=== PATIENT | female | born 1955 | race Hispanic/Latino ===

== ENCOUNTER 2020-03-02 06:04 | Day surgery (SDC) | payer OTHER, MEDICARE ==
[2020-02-29 13:01] LABS: BASOPHILS % (AUTO) 0.8 % (0.0-5.0); EOSINOPHILS % (AUTO) 2.4 % (0.0-8.0); HEMATOCRIT 32.8 % (36-48); LYMPHOCYTES % (AUTO) 26.1 % (21.0-51.0); MEAN CORPUSCULAR HEMOGLOBIN 32.7 pg (27.0-33.0); MEAN CORPUSCULAR HGB CONC 32.3 g/dL (32.0-36.0); MEAN CORPUSCULAR VOLUME 101.2 fL (79-99); NEUTROPHILS % (AUTO) 60.9 % (40.0-77.0); PLATELET COUNT (AUTO) 238 K/uL (130-400); RED BLOOD CELL COUNT(AUTO) 3.24 MIL/uL (4.00-5.50); WHITE BLOOD COUNT (AUTO) 4.9 K/uL (4.8-10.8)
[2020-02-29 13:08] LABS: CREATININE 1.1 mg/dL (0.5-1.5); POTASSIUM 4.8 mmol/L (3.5-5.1)
[2020-02-29 13:15] LABS: INR 0.89 (0.85-1.15); PARTIAL THROMBOPLASTIN TIME 26.6 SEC (26.3-35.5); PROTHROMBIN TIME 9.7 SEC (9.6-11.6)
[2020-02-29 13:53] LABS: APPEARANCE,URINE Clear (CLEAR); BILIRUBIN,URINE Negative (NEGATIVE); COLOR,URINE Yellow (YELLOW); GLUCOSE, URINE (UA) Negative (NEGATIVE); KETONES,URINE Negative (NEGATIVE); LEUKOCYTE ESTERASE ,URINE Negative (NEGATIVE); NITRATE,URINE Negative (NEGATIVE); OCCULT BLOOD,URINE Negative (NEGATIVE); PH,URINE 5.5 (5.0-8.0); PROTEIN,URINE Negative (NEGATIVE); UROBILINOGEN,URINE 0.2 mg/dL (0.2-1.0)
--- NOTE | 2020-03-01 11:10 | NUR ---
LABS LOW H&H REPORTED TO DR. DICKINSON, NO FURTHER ORDERS GIVEN,
[2020-03-01 11:42] VITALS: BP 141/65
[2020-03-02] VITALS (11 sets, daily range): BP systolic 114–207; BP diastolic 44–67
[~2020-03-02] VITALS: Ht 154.9 cm; Wt 73.2 kg
[~2020-03-02 06:04] MED LIST: ACET-2743 PO; ASPI-556 PO; FERR-82 PO; FLUT16H NASAL; INSU100I21 SQ; ISOS30TA6 PO; LEG CRAMPS PO; LISI-613 PO; METO-391 PO; NITR0.4T SL; OMEP20CA12 PO; PIOG30TA70 PO; SIMV-43 PO; TRAM-355 PO
[2020-03-02] MEDS ORDERED: DEXTROSE 50%-WATER 25 GM/50 ML VIAL ONE (06:20)
[2020-03-02] MEDS ORDERED: LIDOCAINE HCL 2% 20ML ONE (07:22)
[2020-03-02] MEDS ORDERED: IOHEXOL 350 MG/ML 100ML INFUS..BTL IV ONE (07:22)
[2020-03-02] MEDS ORDERED: HEPARIN SODIUM 1000UNIT/ML 10ML VIAL ONE (07:22)
[2020-03-02] MEDS ORDERED: IOHEXOL-350 50ML VIAL IV ONE (07:22)
[2020-03-02] MEDS ORDERED: GLUCAGON 1MG KIT 1 MG ML IM PRN (08:15)
[2020-03-02] MEDS ORDERED: DEXTROSE 50%-WATER 50 ML DISP.SYRIN IV PRN (08:15)
[2020-03-02] MEDS ORDERED: HYDRALAZINE HCL 20 MG/ML VIAL ONE (08:59)
[2020-03-02] MEDS: HYDRALAZINE HCL 20 MG/ML VIAL IV SCH ×2 (09:00→09:14)
[2020-03-02] MEDS ORDERED: ACETAMINOPHEN EXTRA STRENGTH 500 MG TABLET ONE (10:19)
[2020-03-02] MEDS ORDERED: ACETAMINOPHEN EXTRA STRENGTH 500 MG TABLET PO SCH (10:30)
== END 2020-03-02 12:50 | disposition home or self-care (01) ==
LOC: DAH 06:04
PROVIDERS: ATTEND Internal Medicine Cardiovascular Disease
DX: I25.118 Atherosclerotic heart disease of native coronary artery with other forms of angina pectoris (principal); I25.82 Chronic total occlusion of coronary artery; E11.22 Type 2 diabetes mellitus with diabetic chronic kidney disease; I12.9 Hypertensive chronic kidney disease with stage 1 through stage 4 chronic kidney disease, or unspecified chronic kidney disease; N18.3 Chronic kidney disease, stage 3 (moderate); E78.5 Hyperlipidemia, unspecified; E11.21 Type 2 diabetes mellitus with diabetic nephropathy; Z79.01 Long term (current) use of anticoagulants; Z88.8 Allergy status to other drugs, medicaments and biological substances; Z79.899 Other long term (current) drug therapy; Z79.82 Long term (current) use of aspirin; Z98.890 Other specified postprocedural states; Z90.49 Acquired absence of other specified parts of digestive tract; Z79.84 Long term (current) use of oral hypoglycemic drugs
CPT/HCPCS: 36415; 71045; 80048; 81003; 82948 ×3; 85025; 85610; 85730; 93005; 93458; 93880; 94010; A4215; A4216; A4221; A4222; A4223 ×3; A4606; A4663; C1760; C1894; J0360; J1644; J3490; J7070; Q9965; Q9967 ×2

== ENCOUNTER → 2020-09-04 | Outpatient (CLI) | payer OTHER, MEDICARE ==
[~2020-09-04] MED LIST changes: -LEG CRAMPS PO
== END | disposition home or self-care (01) ==
LOC: RAH 11:48
PROVIDERS: ATTEND Internal Medicine Cardiovascular Disease
DX: I25.10 Atherosclerotic heart disease of native coronary artery without angina pectoris (principal); Z95.1 Presence of aortocoronary bypass graft
CPT/HCPCS: 71046

== ENCOUNTER → 2020-10-26 | Outpatient (CLI) | payer OTHER, MEDICARE ==
[~2020-10-26] MED LIST changes: -ISOS30TA6 PO; +ISOS30TA92 PO; -LISI-613 PO; +LISI20TA24 PO
[2020-10-26 11:26] LABS: CREATININE 0.9 mg/dL (0.5-1.5)
== END | disposition home or self-care (01) ==
LOC: LAB 09:55
PROVIDERS: ATTEND Thoracic Surgery (Cardiothoracic Vascular Surgery)
DX: I25.10 Atherosclerotic heart disease of native coronary artery without angina pectoris (principal); I25.700 Atherosclerosis of coronary artery bypass graft(s), unspecified, with unstable angina pectoris; Z95.1 Presence of aortocoronary bypass graft
CPT/HCPCS: 36415; 82565; 84520

== ENCOUNTER → 2020-10-29 | Outpatient (CLI) | payer OTHER, MEDICARE ==
[~2020-10-29] MED LIST changes: +IOHEXOL-350 75 ML VIAL IV ONE
== END | disposition home or self-care (01) ==
LOC: RAH 11:58
PROVIDERS: ATTEND Thoracic Surgery (Cardiothoracic Vascular Surgery)
DX: K44.9 Diaphragmatic hernia without obstruction or gangrene (principal); I51.7 Cardiomegaly; I25.10 Atherosclerotic heart disease of native coronary artery without angina pectoris; I25.700 Atherosclerosis of coronary artery bypass graft(s), unspecified, with unstable angina pectoris; Z95.1 Presence of aortocoronary bypass graft
CPT/HCPCS: 71260; Q9967